=== PATIENT | male | born 1960 | race Caucasian/White ===

== ENCOUNTER 2017-02-19 20:44 | Emergency (ER) | payer BC, OTHER ==
[2017-02-19] MEDS ORDERED: NS 0.9% 1000 ML* 1,000 ML IV ONE (21:21)
[2017-02-19] MEDS ORDERED: Ondansetron INJ* 2 MG/ML VIAL IV ONE (21:21)
[2017-02-19] MEDS ORDERED: HYDROmorphone* 2 MG/ML 1 ML SYR IV ONE (21:21)
[2017-02-19 22:20] LABS: Comments Flag Yes; Hematocrit 37 % (42-52); Hemoglobin 12.5 g/dl (14.0-18.0); Mean Corpuscular HGB Conc 34 g/dl (31-36); Mean Corpuscular Hemoglobin 30 pg (27-31); Mean Corpuscular Volume 88 fL (80-94); Mean Platelet Volume 8 um3 (7.4-10.4); Red Cell Distribution Width 15 % (10.5-15); White Blood Count 14.5 10^3/ul (3.5-10.8)
[2017-02-19 22:21] LABS: Add Diff/Slide Review? Slide Review Added
[2017-02-19 22:34] LABS: ALT 11 U/L (7-52); AST 25 U/L (13-39); Alkaline Phosphatase 94 U/L (34-104); Anion Gap 7 mmol/L (2-11); BUN/Creatinine Ratio 10.4 (8-20); Blood Urea Nitrogen 12 mg/dL (6-24); CO2 Carbon Dioxide 22 mmol/L (22-32); Calcium 9.2 mg/dL (8.6-10.3); Chloride 94 mmol/L (101-111); EGFR Non-African American 65.3 (>60); Glucose 129 mg/dL (70-100); Potassium 4.2 mmol/L (3.5-5.0); Sodium 123 mmol/L (133-145)
[2017-02-19 22:35] LABS: Troponin I 0.01 ng/mL (<0.04)
[2017-02-19 22:38] LABS: Urine Bilirubin Negative (Negative); Urine Glucose Negative (Negative); Urine Nitrite Negative (Negative)
[2017-02-20 00:05] LABS: Alcohol < 10 mg/dL (<10)
--- NOTE | 2017-02-20 00:56 | ED ---
Soy Aguayo SooYoung, scribed for Cm Stiles MD on 02/19/17 at 2119 . Lower Extremity - HPI Summary HPI Summary: A 56 y/o M JAKE presents to ED after a fall with severe R hip pain onset of fall at approx 1999. Pt states he was working on his home, and tripped over a saw horse, landing on his R side. Pain radiates to his groin. Unable to bear weight, ambulate. Denies rib pain, CP, SOB. Pt has back pain at baseline, takes Oxycodone. Denies ETOH involved. - History of Current Complaint Chief Complaint: EDExtremityLower Stated Complaint: FALL Time Seen by Provider: 02/19/17 21:12 Hx Obtained From: Patient Mechanism Of Injury: Fall From A Standing Position Onset of Pain: Immediate, Post Accident Onset/Duration: Still Present Severity Currently: Severe Pain Intensity: 10 Pain Scale Used: 0-10 Numeric Timing: Constant Location: Radiates To - R hip and radiates to groin Aggravating Factor(s): Ambulation, Weight Bearing - Allergies/Home Medications Allergies/Adverse Reactions: Allergies Allergy/AdvReac Type Severity Reaction Status Date / Time No Known Allergies Allergy Verified 04/16/16 09:33 Home Medications: Home Medications Cyclobenzaprine TAB* [Flexeril 10 MG TAB*] 10 mg PO BID PRN 02/19/17 [History Confirmed 02/19/17] Sildenafil Citrate [Viagra] 100 mg PO 02/19/17 [History] PMH/Surg Hx/FS Hx/Imm Hx Previously Healthy: No Endocrine/Hematology History: Denies: Hx Diabetes Cardiovascular History: Reports: Hx Hypertension Denies: Hx Congestive Heart Failure GI History: Reports: Hx Cirrhosis - of liver, Hx Gastroesophageal Reflux Disease - on meds Musculoskeletal History: Reports: Hx Arthritis, Hx Back Problems, Other Musculoskeletal History - cervical stenosis Sensory History: Denies: Hx Contacts or Glasses, Hx Hearing Aid Opthamlomology History: Denies: Hx Contacts or Glasses Psychiatric History: Reports: Hx Substance Abuse - ETOH - Surgical History Surgery Procedure, Year, and Place: wisdom teeth, tonsillectomy. SINUS SURGERY Hx Anesthesia Reactions: No - Immunization History Date of Tetanus Vaccine: PT STATES UNSURE Date of Influenza Vaccine: NONE Infectious Disease History: Yes Infectious Disease History: Reports: Hx Hepatitis - current dx, Hx of Known/ Suspected MRSA Denies: Traveled Outside the [place] in Last 30 Days - Family History Known Family History: Positive: Other - neg: anaesthesia reaction - Social History Occupation: Employed Full-time Lives: Alone Alcohol Use: None Alcohol Amount: 1/5th of vodka Hx Substance Use: No Substance Use Type: Reports: None Substance Use Comment - Amount & Last Used: 1 week prior to admission Hx Tobacco Use: No Smoking Status (MU): Never Smoked Tobacco Have You Smoked in the Last Year: No Review of Systems Negative: Chest Pain Negative: Shortness Of Breath Positive: Other - pos: R hip pain; neg: rib pain All Other Systems Reviewed And Are Negative: Yes Physical Exam - Summary Physical Exam Summary: The patient is well-nourished and in moderate pain distress. The skin is warm and dry and skin color reflects adequate perfusion. Skin is intact. HEENT: The head is normocephalic and atraumatic. No evidence of george's sign , racoon sign, basilar skull fracture. The pupils are equal and reactive. The conjunctivae are clear and without drainage. Nares are patent and without drainage. Mouth reveals moist mucous membranes and the throat is without erythema and exudate. The external ears are intact. The ear canals are patent and without drainage. The tympanic membranes are intact, no hemotympanum. Neck is supple with full range of motion and non-tender. There are no carotid bruits. There is no neck vein distension. Respiratory: Chest is non-tender. Lungs are clear to auscultation and breath sounds are symmetrical and equal. Cardiovascular: Hear is regular rate and rhythm. There is no murmur or rub auscultated. There is no peripheral edema and pulses are symmetrical and equal. Abdomen: The abdomen is distended. No evidence of trauma. There are normal bowel sounds heard in all four quadrants and there is no organomegaly palpated. Musculoskeletal: RLE looks eternally rotated and shortened. Marked pain in R hip and approximate femur, shortened LE. FROM distally. There is good capillary refill. There is no peripheral edema or calf tenderness elicited. No reproducible pain over pelvis. Neurological: Patient is alert and oriented to person, place and time. The patient has symmetrical motor strength in all four extremities. Cranial nerves are grossly intact. Deep tendon reflexes are symmetrical and equal in all four extremities. Psychiatric: The patient has an appropriate affect and does not exhibit any anxiety or depression. Triage Information Reviewed: Yes Vital Signs On Initial Exam: Initial Vitals Temp Pulse Resp BP Pulse Ox 96.7 F 84 20 124/71 100 02/19/17 21:00 02/19/17 21:00 02/19/17 21:00 02/19/17 21:00 02/19/17 21:00 Vital Signs Reviewed: Yes Diagnostics - Vital Signs Vital Signs Temp Pulse Resp BP Pulse Ox 02/19/17 21:00 96.7 F 84 20 124/71 100 - Laboratory Lab Results: Lab Results 02/19/17 02/19/17 02/19/17 Range/Units 22:05 22:05 22:05 WBC 14.5 H (3.5-10.8) 10^3/ul RBC 4.20 (4.0-5.4) 10^6/ul Hgb 12.5 L (14.0-18.0) g/dl Hct 37 L (42-52) % MCV 88 (80-94) fL MCH 30 (27-31) pg MCHC 34 (31-36) g/dl RDW 15 (10.5-15) % Plt Count 135 L (150-450) 10^3/ul MPV 8 (7.4-10.4) um3 Neut % (Auto) 84.9 H (38-83) % Lymph % (Auto) 7.6 L (25-47) % Baker % (Auto) 6.3 (1-9) % Eos % (Auto) 0.9 (0-6) % Baso % (Auto) 0.3 (0-2) % Absolute Neuts (auto) 12.3 H (1.5-7.7) 10^3/ul Absolute Lymphs (auto) 1.1 (1.0-4.8) 10^3/ul Absolute Monos (auto) 0.9 H (0-0.8) 10^3/ul Absolute Eos (auto) 0.1 (0-0.6) 10^3/ul Absolute Basos (auto) 0 (0-0.2) 10^3/ul Absolute Nucleated RBC 0 10^3/ul Nucleated RBC % 0 INR (Anticoag Therapy) 1.25 H (0.89-1.11) APTT 29.6 (26.0-36.3) seconds Sodium (133-145) mmol/L Potassium (3.5-5.0) mmol/L Chloride (101-111) mmol/L Carbon Dioxide (22-32) mmol/L Anion Gap (2-11) mmol/L BUN (6-24) mg/dL Creatinine (0.67-1.17) mg/dL Est GFR ( Amer) (>60) Est GFR (Non-Af Amer) (>60) BUN/Creatinine Ratio (8-20) Glucose (70-100) mg/dL Lactic Acid (0.5-2.0) mmol/L Calcium (8.6-10.3) mg/dL Total Bilirubin (0.2-1.0) mg/dL AST (13-39) U/L ALT (7-52) U/L Alkaline Phosphatase (34-104) U/L Troponin I (<0.04) ng/mL Total Protein (6.4-8.9) g/dL Albumin (3.2-5.2) g/dL Globulin (2-4) g/dL Albumin/Globulin Ratio (1-3) Urine Color Yellow Urine Appearance Clear Urine pH 5.0 (5-9) Ur Specific [place] 1.015 (1.010-1.030) Urine Protein Negative (Negative) Urine Ketones Negative (Negative) Urine Blood Negative (Negative) Urine Nitrate Negative (Negative) Urine Bilirubin Negative (Negative) Urine Urobilinogen Negative (Negative) Ur Leukocyte Esterase Negative (Negative) Urine Glucose Negative (Negative) Serum Alcohol (<10) mg/dL Blood Type Antibody Screen 02/19/17 02/19/17 02/19/17 Range/Units 22:05 22:05 22:05 WBC (3.5-10.8) 10^3/ul RBC (4.0-5.4) 10^6/ul Hgb (14.0-18.0) g/dl Hct (42-52) % MCV (80-94) fL MCH (27-31) pg MCHC (31-36) g/dl RDW (10.5-15) % Plt Count (150-450) 10^3/ul MPV (7.4-10.4) um3 Neut % (Auto) (38-83) % Lymph % (Auto) (25-47) % Baker % (Auto) (1-9) % Eos % (Auto) (0-6) % Baso % (Auto) (0-2) % Absolute Neuts (auto) (1.5-7.7) 10^3/ul Absolute Lymphs (auto) (1.0-4.8) 10^3/ul Absolute Monos (auto) (0-0.8) 10^3/ul Absolute Eos (auto) (0-0.6) 10^3/ul Absolute Basos (auto) (0-0.2) 10^3/ul Absolute Nucleated RBC 10^3/ul Nucleated RBC % INR (Anticoag Therapy) (0.89-1.11) APTT (26.0-36.3) seconds Sodium 123 L (133-145) mmol/L Potassium 4.2 (3.5-5.0) mmol/L Chloride 94 L (101-111) mmol/L Carbon Dioxide 22 (22-32) mmol/L Anion Gap 7 (2-11) mmol/L BUN 12 (6-24) mg/dL Creatinine 1.15 (0.67-1.17) mg/dL Est GFR ( Amer) 84.0 (>60) Est GFR (Non-Af Amer) 65.3 (>60) BUN/Creatinine Ratio 10.4 (8-20) Glucose 129 H (70-100) mg/dL Lactic Acid 2.6 H* (0.5-2.0) mmol/L Calcium 9.2 (8.6-10.3) mg/dL Total Bilirubin 1.00 (0.2-1.0) mg/dL AST 25 (13-39) U/L ALT 11 (7-52) U/L Alkaline Phosphatase 94 (34-104) U/L Troponin I 0.01 (<0.04) ng/mL Total Protein 7.0 (6.4-8.9) g/dL Albumin 4.0 (3.2-5.2) g/dL Globulin 3.0 (2-4) g/dL Albumin/Globulin Ratio 1.3 (1-3) Urine Color Urine Appearance Urine pH (5-9) Ur Specific [place] (1.010-1.030) Urine Protein (Negative) Urine Ketones (Negative) Urine Blood (Negative) Urine Nitrate (Negative) Urine Bilirubin (Negative) Urine Urobilinogen (Negative) Ur Leukocyte Esterase (Negative) Urine Glucose (Negative) Serum Alcohol < 10 (<10) mg/dL Blood Type A Positive Antibody Screen Negative Result Diagrams: 02/19/17 22:05 02/19/17 22:05 Lab Statement: Any lab studies that have been ordered have been reviewed, and results considered in the medical decision making process. - Radiology HIP XR Xray Interpretation: Positive (See Comments) - femoral neck fx, impacted. no pelvis fx. Radiology Interpretation Completed By: ED Physician R FEMUR XR Xray Interpretation: Positive (See Comments) - femoral neck fx. no fx distally in femur. Radiology Interpretation Completed By: ED Physician cxr Xray Interpretation: No Acute Changes Radiology Interpretation Completed By: ED Physician - EKG 2233 Cardiac Rate: Tachycardia - 101 bpm EKG Rhythm: Sinus Tachycardia ST Segment: Non-Specific EKG Interpretation: nml axis, poor R wave progression Re-Evaluation - Re-Evaluation 1 Re-Evaluation Time: 22:56 Change: Unchanged Comment: Discussing XR results with pt. Pt appears less anxious. 2 Re-Evaluation Time: 00:03 Change: Unchanged Comment: Discussing possibility of transfer to trauma center. Lower Extremity Course/Dx - Course Course Of Treatment: Pt is a 56 y/o M BIBA presenting after a fall with severe R hip pain onset of fall at approx 1999. Pt was working on his home, tripped over a saw horse, landed on his R side. Pain radiates to his groin. Unable to bear weight, ambulate. Denies rib pain, CP, SOB. Pt has back pain at baseline, takes Oxycodone. Denies ETOH involved. Pt given fluids, Dilaudid, Zofran in ED. EKG is sinus tachy at 101 bpm, nml axis, nonspecific ST changes, and poor R -wave progression. UA results are neg for UTI. Lactic acid is 2.6. XR show femoral head fx, impact; no fx distally in femur; and no pelvis fx. - Diagnoses Provider Diagnoses: Fracture of right hip, Hyponatremia, Thrombocytopenia - Physician Notifications Discussed Care Of Patient With: Federico Parmar - ortho Time Discussed With Above Provider: 23:08 Instructed by Provider To: Other - Recommends admission Discharge - Discharge Plan Condition: Stable Disposition: ADMITTED TO [facility] Referrals: Blanca Vallejo [Primary Care Provider] - Consult Consult: 2331: Consult with sandy Peters Wants NPO after midnight 2337: Consult with Dr. Alberto, hospitalist Will admit pt. 5: Consult with sandy Peters Called back, recommends transfer. 0: Consult with [facility] for transfer Discussed pt. Will call [facility] back. 0037: Consult with Boom Alfredo for transfer Will accept pt. The documentation as recorded by the Soy boston SooYoung accurately reflects the service I personally performed and the decisions made by me, Cm Stiles MD.
[2017-02-20] MEDS ORDERED: HYDROmorphone* 2 MG/ML 1 ML SYR IV SLOW PU ONE (01:42)
[2017-02-20 01:51] VITALS: BP 130/68
--- NOTE | 2017-02-20 07:18 | RAD ---
INDICATION: Traumatic right hip fracture COMPARISON: None TECHNIQUE: AP and lateral views were obtained. FINDINGS: There is a subcapital fracture of the right femur with mild impaction. No other fractures are evident. There are no acute soft tissue changes. IMPRESSION: SUBCAPITAL FRACTURE RIGHT FEMUR.
--- NOTE | 2017-02-20 07:18 | RAD ---
INDICATION: Fall. Traumatic right hip fracture COMPARISON: None TECHNIQUE: An AP view of the pelvis and AP views of the hip in neutral and abducted position were obtained FINDINGS: Bones: There is subcapital fracture of the right femur. There is mild impaction. No other fractures are evident. The SI joints and symphysis are intact. Other: None IMPRESSION: SUBCAPITAL FRACTURE RIGHT FEMUR.
--- NOTE | 2017-02-20 07:23 | RAD ---
INDICATION: Preoperative. Traumatic right hip fracture COMPARISON: Chest x-ray August 04, 2015 TECHNIQUE: AP supine views were obtained. FINDINGS: Bones/Soft Tissues: There are no acute bony findings. Cardiomediastinal: The cardiomediastinal silhouette is normal. Lungs: There are no infiltrates. Pleura: There are no pleural effusions. Other: None IMPRESSION: NO ACTIVE DISEASE.
== END 2017-02-20 01:56 | disposition short-term general hospital (02) ==
LOC: ED 20:44
DX: M25.551 Pain in right hip (principal); S72.001A Fracture of unspecified part of neck of right femur, initial encounter for closed fracture; W19.XXXA Unspecified fall, initial encounter; Y93.9 Activity, unspecified; Y92.9 Unspecified place or not applicable; E87.1 Hypo-osmolality and hyponatremia; D69.6 Thrombocytopenia, unspecified
CPT/HCPCS: 36415; 71010; 80053; 80320; 81003; 83605; 84484; 85025; 85610; 85730; 86850; 86900; 86901; 93005; 96374; 96375; 99285; G0480; J1170; J2405

== ENCOUNTER 2018-10-25 14:43 | Emergency (ER) | payer BC ==
--- NOTE | 2018-10-25 16:58 | ED ---
Shortness of Breath - HPI Summary HPI Summary: Pt is a 58 y/o M presenting to the ED with a chief complaint of shortness of breath onset about 3 months ago that has progressively gotten worse. The pt reports LE edema, and feeling congested. The pt denies chest pain, cardiac issues, CA, and LE pain. The pt does not smoke and he is a former alcoholic. He had hip surgery about 1.5 years ago. Home Medications Medication Instructions Recorded Confirmed Type Multivitamins/Minerals TAB* [Thera 1 tab PO DAILY 10/16/14 10/25/18 History M Plus TAB*] Omeprazole CAP (NF) [PriLOSEC CAP*] 40 mg PO BID 10/16/14 10/25/18 History Potassium Chlor TAB* [Klor Con ER 20 meq PO DAILY 10/16/14 10/25/18 History TAB*] Furosemide TAB* [Lasix TAB*] 40 mg PO DAILY 08/04/15 10/25/18 History Spironolactone (NF) 100 mg PO BID 08/04/15 10/25/18 History [Spironolactone 50 MG (NF)] oxyCODONE TAB* [Roxycodone TAB*] 10 mg PO Q4H MDD 12 08/04/15 10/25/18 History Cyclobenzaprine TAB* [Flexeril 10 10 mg PO BID PRN 02/19/17 10/25/18 History MG TAB*] Sildenafil Citrate [Viagra] 100 mg PO BEDTIME PRN 02/19/17 10/25/18 History Gabapentin 300 mg PO TID 10/25/18 10/25/18 History Methocarbamol TAB* [Robaxin 500 MG 500 mg PO QID PRN 10/25/18 10/25/18 History TAB*] - History of Current Complaint Chief Complaint: EDShortnessOfBreath Hx Obtained From: Patient Onset/Duration: Gradual Onset, Lasting Weeks, Still Present, Worse Since - last couple of days Timing: Constant Current Severity: Moderate Dyspnea At: Rest Aggrevating Factors: Nothing Alleviating Factors: Nothing Associated Signs & Symptoms: Nasal Congestion, Edema - Allergy/Home Medications Allergies/Adverse Reactions: Allergies Allergy/AdvReac Type Severity Reaction Status Date / Time No Known Allergies Allergy Verified 04/16/16 09:33 Home Medications: Home Medications Gabapentin 300 mg PO TID 10/25/18 [History Confirmed 10/25/18] Methocarbamol TAB* [Robaxin 500 MG TAB*] 500 mg PO QID PRN 10/25/18 [History Confirmed 10/25/18] PMH/Surg Hx/FS Hx/Imm Hx Previously Healthy: Yes Endocrine/Hematology History: Denies: Hx Diabetes Cardiovascular History: Reports: Hx Hypertension Denies: Hx Congestive Heart Failure GI History: Reports: Hx Cirrhosis - of liver, Hx Gastroesophageal Reflux Disease - on meds Musculoskeletal History: Reports: Hx Arthritis, Hx Back Problems, Other Musculoskeletal History - cervical stenosis Sensory History: Denies: Hx Contacts or Glasses, Hx Hearing Aid Opthamlomology History: Denies: Hx Contacts or Glasses Psychiatric History: Reports: Hx Substance Abuse - ETOH - Surgical History Surgery Procedure, Year, and Place: wisdom teeth, tonsillectomy. SINUS SURGERY Hx Anesthesia Reactions: No - Immunization History Date of Tetanus Vaccine: PT STATES UNSURE Date of Influenza Vaccine: NONE Infectious Disease History: Yes Infectious Disease History: Reports: Hx Hepatitis - current dx, Hx of Known/ Suspected MRSA Denies: Traveled Outside the [place] in Last 30 Days - Family History Known Family History: Positive: Other - neg: anaesthesia reaction - Social History Alcohol Use: None Alcohol Amount: 1/5th of vodka Hx Substance Use: No Substance Use Type: Reports: None Substance Use Comment - Amount & Last Used: 1 week prior to admission Hx Tobacco Use: No Smoking Status (MU): Never Smoked Tobacco Have You Smoked in the Last Year: No Review of Systems Positive: Other - congestion Negative: Chest Pain Positive: Shortness Of Breath Positive: Edema. Negative: Myalgia All Other Systems Reviewed And Are Negative: Yes Physical Exam - Summary Physical Exam Summary: Appearance: Ill-appearing, no pain distress, well-nourished Skin: Warm, color reflects adequate perfusion, dry Head: Normal Head/Face inspection, atraumatic Eyes: Conjunctiva clear ENT: Normal inspection Neck: Supple, no nodes, no JVD Respiratory: Mild respiratory distress, decreased breath sounds Cardio: RRR, No murmur, pulses normal, brisk capillary refill Abdomen: Soft, nontender Bowel sounds: Present Musculoskeletal: Strength Intact/ROM intact, no calf tenderness, 2+ bilateral pedal edema Psychological: Normal Neuro: Alert, muscle tone normal, no focal deficit Triage Information Reviewed: Yes Vital Signs On Initial Exam: Initial Vitals Temp Pulse Resp BP Pulse Ox 97.9 F 112 22 113/82 99 10/25/18 14:52 10/25/18 14:52 10/25/18 14:52 10/25/18 14:52 10/25/18 14:52 Vital Signs Reviewed: Yes Diagnostics - Vital Signs Vital Signs Temp Pulse Resp BP Pulse Ox 10/25/18 14:52 97.9 F 112 22 113/82 99 - Laboratory Result Diagrams: 10/25/18 17:20 10/25/18 17:20 Lab Statement: Any lab studies that have been ordered have been reviewed, and results considered in the medical decision making process. - Radiology CXR Radiology Interpretation Completed By: Radiologist Summary of Radiographic Findings: Single view of the chest likely represents hyperinflated lung sanchez with likely chronic interstitial disease. ED physician has reviewed this report. - EKG 1701 Cardiac Rate: NL - 92bpm EKG Rhythm: Sinus Rhythm ST Segment: Normal Ectopy: None EKG Comparison: No Significant Change - from 02/19/17 Summary of EKG Findings: An EKG at 1701 reveals NSR 92bpm, nml AV/IV CT, nml QTc , and nml axis. No acute changes from 02/19/17. Course/Dx - Course Course Of Treatment: Pt is a 58 y/o M presenting to the ED with a chief complaint of shortness of breath onset about 3 months ago that has progressively gotten worse. He reports associated LE edema and nasal congestion. He denies chest pain and LE pain. Pt is in mild respiratory distress on examination and has bilateral 2+ pedal edema. An EKG at 1701 reveals NSR 92bpm, nml AV/IV CT, nml QTc, and nml axis. No acute changes from . An EKG at 1701 reveals NSR 92bpm, nml AV/IV CT, nml QTc, and nml axis. No acute changes from 02/19/17. CXR: Single view of the chest likely represents hyperinflated lung sanchez with likely chronic interstitial disease. Pts bloodwork shows WBC at 11.4, Hgb of 13.6, Plt count at 110, 8.9 absolute neutrophils, and 0.9 absolute monos. The pts D-Dimer is nml. Chemistry shows sodium of 134, chloride of 94, anion gap of 13, glucose of 128, and CRP of 10.96. I was made aware of the lactic acid level of 2.2 at 1747. The pts troponin is 0.01. The pt will be signed out to Dr. Haro pending CTA chest and disposition. Discharge - Sign-Out/Discharge Documenting (check all that apply): Patient Departure, Sign-Out Patient Signing out patient TO: Jericho Haro - Discharge Plan Condition: Stable Referrals: Blanca Vallejo [Primary Care Provider] - - Attestation Statements Document Initiated by Scribe: Yes Documenting Scribe: Lolita Pace Provider For Whom Lenchoibe is Documenting (Include Credential): Dr. Pat Davis MD. Scribe Attestation: ILolita, scribed for Dr. Pat Davis MD. on 10/25/18 at 1902. Status of Scribe Document: Ready
[2018-10-25 17:34] LABS: ABS Basophils 0 10^3/ul (0-0.2); ABS Eosinophils 0.2 10^3/ul (0-0.6); ABS Lymphocytes 1.3 10^3/ul (1.0-4.8); ABS Monocytes 0.9 10^3/ul (0-0.8); ABS Neutrophils 8.9 10^3/ul (1.5-7.7); ABS Nucleated RBC 0 10^3/ul; Eosinophil % 2.1 %; Hematocrit 40 % (36-46); Hemoglobin 13.6 g/dL (14.0-18.0); Lymphocyte % 11.6 %; Mean Corpuscular HGB Conc 34 g/dL (31-36); Mean Corpuscular Hemoglobin 28 pg (27-31); Mean Corpuscular Volume 82 fL (80-94); Mean Platelet Volume 8.9 fL (7.4-10.4); Nucleated Red Blood Cells % 0.1; Platelet Count 110 10^3/uL (150-450); Red Blood Count 4.88 10^6 /uL (4.18-5.48); Red Cell Distribution Width 15 % (10.5-15); White Blood Count 11.4 10^3/uL (3.5-10.8)
[2018-10-25 17:39] LABS: Activated Partial Thrombo Time 31.5 seconds (26.0-36.3)
[2018-10-25 17:46] LABS: Albumin 4.4 g/dL (3.2-5.2); Albumin/Globulin Ratio 1.3 (1-3); BUN/Creatinine Ratio 8.8 (8-20); C Reactive Protein 10.96 mg/L (<8.01); Calcium 9.9 mg/dL (8.6-10.3); EGFR African American 102.8 (>60); Globulin 3.3 g/dL (2-4); Potassium 3.8 mmol/L (3.5-5.0); Total Bilirubin 0.7 mg/dL (0.2-1.0); Total Protein 7.7 g/dL (6.4-8.9)
[2018-10-25 17:50] LABS: Troponin I 0.01 ng/mL (<0.04)
[2018-10-25 17:51] LABS: CKMB ng/mL 1.6 ng/mL (0.6-6.3); Myoglobin 19.6 ng/mL (17.4-105.7)
[2018-10-25] MEDS ORDERED: Iohexol 350* (CONTRAST) 500 ML MDV IV ONE (18:11)
[2018-10-25] MEDS ORDERED: Iodixanol 320 (CONTRAST) 100 ML SDV IV ONE (18:57)
--- NOTE | 2018-10-25 19:15 | ED ---
Progress - Progress Note Progress Note: This patient is signed out from Dr. Davis at 19:00 awaiting Chest CTA. Chest CTA reveals, as per radiologist: 1. No visible acute pulmonary embolism. 2. There is splenomegaly. 3. There is somewhat nodular contour of the liver suspicious for hepatic cirrhosis. ED Physician has reviewed this report. Patient not currently dyspneic. Re-Evaluation - Re-Evaluation First Eval Change: Improved Course/Dx - Course Course Of Treatment: Patient with a known history of cirrhosis. No evidence of pulmonary emboli. Likely chronic COPD without significant exacerbation. Start Long-term controller medication. - Diagnoses Provider Diagnoses: COPD (chronic obstructive pulmonary disease) with chronic bronchitis, Dyspnea Discharge - Sign-Out/Discharge Documenting (check all that apply): Patient Departure Patient Received Moderate/Deep Sedation with Procedure: No - Discharge Plan Condition: Improved Disposition: HOME Prescriptions: Albuterol HFA INHALER* [Ventolin HFA Inhaler*] 2 puff INH Q4H PRN #1 mdi PRN Reason: Sob/Wheezing Fluticasone Propion/Salmeterol [Fluticasone-Salmeterol 100-50] 1 each INH BID # 1 blst.w.dev predniSONE TAB* [Deltasone TAB*] 50 mg PO DAILY #3 tab Patient Education Materials: COPD (Chronic Obstructive Pulmonary Disease) (ED) Referrals: Blanca Vallejo [Primary Care Provider] - Additional Instructions: Avoid alcohol and smokers. [facility] and your [facility] function test tomorrow. Return if worse, new symptoms or other concerns. - Billing Disposition and Condition Condition: IMPROVED Disposition: Home - Attestation Statements Document Initiated by Nestor: Yes Documenting Scribe: Whitley Frankel Provider For Whom Nestor is Documenting (Include Credential): Jericho Haro MD Scribe Attestation: Whitley Aguayo, scribed for Jericho Haro MD on 10/26/18 at 0319. Scribe Documentation Reviewed: Yes Provider Attestation: The documentation as recorded by the Whitley boston accurately reflects the service I personally performed and the decisions made by me, Jericho Haro MD Status of Scribe Document: Viewed
[2018-10-25] MEDS ORDERED: predniSONE TAB* 20 MG PO ONE (20:56)
[2018-10-25 20:59] VITALS: BP 131/85
== END 2018-10-25 21:10 | disposition home or self-care (01) ==
LOC: ED 14:43
DX: J44.9 Chronic obstructive pulmonary disease, unspecified (principal); I10 Essential (primary) hypertension; K21.9 Gastro-esophageal reflux disease without esophagitis
CPT/HCPCS: 36415; 71045; 71275; 80053; 82550; 82553; 82803; 83605; 83874; 83880; 84484; 85025; 85379; 85730; 86140; 93005; 96374; 96375; 99284; J7512; Q9967